=== PATIENT | male | born 1960 | race Caucasian/White ===

== ENCOUNTER 2016-10-27 12:38 | Emergency (ER) | payer MEDICAID ==
[~2016-10-27] VITALS: Ht 188 cm; Wt 113.6 kg
[~2016-10-27 12:38] MED LIST: BACITRACIN1 GM EX; CARVEDILOL6.25 MG PO; COREG3.125 MG PO; FENOFIBRATE134 MG PO; FLEXERIL PO; GABAPENTIN100 MG PO; GABAPENTIN300 MG PO; LANTUS100 MG/ML SC; LEVETIRACETAM500 MG PO; LEXAPRO20 MG PO; LIPITOR20 M1 PO; NITROSTAT0.4 MG SL; NOVOLOG MIX100 U/ML SC; NOVOLOG100 IU/1 M SC; PERCOCET1 TA4 PO; PLAVIX75 MG PO; SPRITAM500 MG PO; TRAZODONE50 MG PO; VICODIN1 TA1 PO; XANAX1 MG PO; ZESTRIL5 M1 PO; ZOLPIDEM5 MG PO
[2016-10-27 13:06] LABS: HEMATOCRIT 46.4 % (39.0-50.0); HEMOGLOBIN 14.8 g/dl (14.0-18.0); IMMATURE GRANULOCYTES 0.3 % (0.0-1.0); MEAN CELL VOLUME 88.5 fL CALC (80.0-100.0); MEAN CORPUSCULAR HGB 28.2 pG CALC (26.0-32.0); MEAN CORPUSCULAR HGB CONC 31.9 g/L CALC (32.0-36.0); NEUT# 4.01 thou/uL (1.82-7.42); RED BLOOD COUNT 5.24 mill/uL (4.70-6.10); RED CELL DISTRI WIDTH 13.5 % (11.5-15.5)
[2016-10-27 13:18] LABS: ALBUMIN 4.1 g/dL (3.2-5.0); ALKALINE PHOSPHATASE 113 u/l (38-126); ANION GAP 20 (6-22 (CALC)); BILIRUBIN, TOTAL 0.8 mg/dL (0.0-1.4); BUN 11 mg/dL (9-20); BUN/CREATININE RATIO 16 (12-20 (CALC)); CALCIUM 9.1 mg/dL (8.4-10.2); CARBON DIOXIDE 22 mmol/l (22-30); CHLORIDE 103 mmol/l (95-108); CREATININE 0.7 mg/dL (0.7-1.3); GFR > 60 ML/MIN (>=60 (CALC)); GFR FOR AFR.AMER. > 60 ML/MIN (>=60 (CALC)); GLUCOSE 156 mg/dL (75-110); SGOT/AST 38 u/l (17-59); SGPT/ALT 29 u/l (21-72); SODIUM 140 mmol/l (137-146); TOTAL PROTEIN 7.6 g/dL (6.3-8.2)
[2016-10-27 13:31] LABS: MYOGLOBIN 129 ng/mL (0 - 121)
[2016-10-27 14:25] LABS: URINE BILIRUBIN - DIPSTICK NEGATIVE (NEGATIVE); URINE BLOOD DIPSTICK NEGATIVE (NEGATIVE); URINE CLARITY CLEAR; URINE COLOR YELLOW; URINE GLUCOSE - DIPSTICK NEGATIVE (NEGATIVE); URINE KETONE NEGATIVE (NEGATIVE); URINE LEUK ESTERASE NEGATIVE (NEGATIVE); URINE NITRITE - DIPSTICK NEGATIVE (Negative); URINE PROTEIN - DIPSTICK NEGATIVE (NEG-TRACE); URINE SPECIFIC GRAVITY 1.025; URINE UROBILINOGEN - DIPSTICK 0.2 E.U./dL (0.2)
[2016-10-27 15:56] VITALS: BP 153/61
== END 2016-10-27 16:27 | disposition home or self-care (01) | DRG 101 ==
LOC: ED 12:38
PROVIDERS: Emergency Medicine
DX: G40.909 Epilepsy, unspecified, not intractable, without status epilepticus (principal); I69.954 Hemiplegia and hemiparesis following unspecified cerebrovascular disease affecting left non-dominant side; E11.9 Type 2 diabetes mellitus without complications; F17.210 Nicotine dependence, cigarettes, uncomplicated; Z95.0 Presence of cardiac pacemaker
CPT/HCPCS: J1953

== ENCOUNTER 2016-12-10 17:24 | Emergency (ER) | payer MEDICAID ==
[~2016-12-10] VITALS: Ht 188 cm; Wt 136.0 kg
[2016-12-10 18:14] LABS: HEMOGLOBIN 15.6 g/dl (14.0-18.0); IMMATURE GRANULOCYTES 0.3 % (0.0-1.0); MEAN CELL VOLUME 87.5 fL CALC (80.0-100.0); MEAN CORPUSCULAR HGB 27.9 pG CALC (26.0-32.0); MEAN CORPUSCULAR HGB CONC 31.8 g/L CALC (32.0-36.0); NEUT# 2.57 thou/uL (1.82-7.42); RED BLOOD COUNT 5.6 mill/uL (4.70-6.10); RED CELL DISTRI WIDTH 13.4 % (11.5-15.5)
[2016-12-10 18:20] LABS: URINE BILIRUBIN - DIPSTICK NEGATIVE (NEGATIVE); URINE BLOOD DIPSTICK NEGATIVE (NEGATIVE); URINE CLARITY CLEAR; URINE COLOR YELLOW; URINE GLUCOSE - DIPSTICK NEGATIVE (NEGATIVE); URINE KETONE NEGATIVE (NEGATIVE); URINE LEUK ESTERASE NEGATIVE (NEGATIVE); URINE NITRITE - DIPSTICK NEGATIVE (Negative); URINE PROTEIN - DIPSTICK NEGATIVE (NEG-TRACE); URINE UROBILINOGEN - DIPSTICK 0.2 E.U./dL (0.2)
[2016-12-10 18:33] LABS: ALBUMIN 3.8 g/dL (3.2-5.0); ALKALINE PHOSPHATASE 119 u/l (38-126); ANION GAP 15 (6-22 (CALC)); BILIRUBIN, TOTAL 0.6 mg/dL (0.0-1.4); BUN 8 mg/dL (9-20); BUN/CREATININE RATIO 10 (12-20 (CALC)); CALCIUM 9.2 mg/dL (8.4-10.2); CARBON DIOXIDE 32 mmol/l (22-30); CHLORIDE 102 mmol/l (95-108); CREATININE 0.8 mg/dL (0.7-1.3); GFR > 60 ML/MIN (>=60 (CALC)); GFR FOR AFR.AMER. > 60 ML/MIN (>=60 (CALC)); GLUCOSE 208 mg/dL (75-110); POTASSIUM 4.3 mmol/l (3.5-5.1); SGOT/AST 25 u/l (17-59); SGPT/ALT 37 u/l (21-72); SODIUM 145 mmol/l (137-146); TOTAL PROTEIN 7.2 g/dL (6.3-8.2)
[2016-12-10] MEDS ORDERED: CIPROFLOXACN500 MG PO (18:41)
[2016-12-10] MEDS ORDERED: ROBITUSSIN AC10 ML PO (18:41)
[2016-12-10] MEDS ORDERED: LOMOTIL2.5 MG PO (18:44)
[2016-12-10 18:45] LABS: MYOGLOBIN 57 ng/mL (0 - 121)
[2016-12-10 19:25] VITALS: BP 155/70
== END 2016-12-10 19:52 | disposition home or self-care (01) | DRG 153 ==
LOC: ED 17:24
PROVIDERS: Emergency Medicine
DX: J06.9 Acute upper respiratory infection, unspecified (principal); F17.210 Nicotine dependence, cigarettes, uncomplicated; R09.81 Nasal congestion; R53.1 Weakness; R19.7 Diarrhea, unspecified; Z95.0 Presence of cardiac pacemaker; R05 Cough
CPT/HCPCS: J1956

== ENCOUNTER 2017-01-16 16:32 | Emergency (ER) | payer MEDICAID ==
[~2017-01-16] VITALS: Ht 188 cm; Wt 110.0 kg
[~2017-01-16 16:32] MED LIST changes: +CIPROFLOXACN500 MG PO; +LOMOTIL2.5 MG PO; +ROBITUSSIN AC10 ML PO
[2017-01-16 17:32] LABS: HEMATOCRIT 44.8 % (39.0-50.0); HEMOGLOBIN 14.5 g/dl (14.0-18.0); IMMATURE GRANULOCYTES 0.2 % (0.0-1.0); MEAN CORPUSCULAR HGB 28.2 pG CALC (26.0-32.0); MEAN CORPUSCULAR HGB CONC 32.4 g/L CALC (32.0-36.0); NEUT# 5.72 thou/uL (1.82-7.42); RED BLOOD COUNT 5.15 mill/uL (4.70-6.10); RED CELL DISTRI WIDTH 13.8 % (11.5-15.5)
[2017-01-16 17:39] LABS: ALBUMIN 3.8 g/dL (3.2-5.0); ALKALINE PHOSPHATASE 115 u/l (38-126); ANION GAP 15 (6-22 (CALC)); BILIRUBIN, TOTAL 0.8 mg/dL (0.0-1.4); BUN 12 mg/dL (9-20); BUN/CREATININE RATIO 14 (12-20 (CALC)); CALCIUM 9.3 mg/dL (8.4-10.2); CARBON DIOXIDE 30 mmol/l (22-30); CHLORIDE 100 mmol/l (95-108); CREATININE 0.8 mg/dL (0.7-1.3); GFR > 60 ML/MIN (>=60 (CALC)); GFR FOR AFR.AMER. > 60 ML/MIN (>=60 (CALC)); GLUCOSE 267 mg/dL (75-110); POTASSIUM 4.6 mmol/l (3.5-5.1); SGOT/AST 23 u/l (17-59); SGPT/ALT 31 u/l (21-72); SODIUM 139 mmol/l (137-146)
[2017-01-16 18:18] LABS: URINE BILIRUBIN - DIPSTICK NEGATIVE (NEGATIVE); URINE BLOOD DIPSTICK NEGATIVE (NEGATIVE); URINE CLARITY SL CLOUDY; URINE COLOR YELLOW; URINE GLUCOSE - DIPSTICK 250 mg/dL (NEGATIVE); URINE KETONE NEGATIVE (NEGATIVE); URINE LEUK ESTERASE NEGATIVE (NEGATIVE); URINE NITRITE - DIPSTICK NEGATIVE (Negative); URINE PROTEIN - DIPSTICK NEGATIVE (NEG-TRACE); URINE SPECIFIC GRAVITY 1.015; URINE UROBILINOGEN - DIPSTICK 0.2 E.U./dL (0.2)
[2017-01-16 18:32] LABS: MYOGLOBIN 176 ng/mL (0 - 121)
[2017-01-16] MEDS ORDERED: LORTAB 1010 MG PO (19:04)
[2017-01-16] MEDS ORDERED: BACTRIM DS1 TAB PO (19:04)
[2017-01-16 19:30] VITALS: BP 154/66
== END 2017-01-16 19:57 | disposition home or self-care (01) | DRG 556 ==
LOC: ED 16:32
PROVIDERS: Emergency Medicine
DX: M79.652 Pain in left thigh (principal); L89.322 Pressure ulcer of left buttock, stage 2; T82.119A Breakdown (mechanical) of unspecified cardiac electronic device, initial encounter; R94.31 Abnormal electrocardiogram [ECG] [EKG]